=== PATIENT | female | born 1970 | race Caucasian/White ===

== ENCOUNTER 2017-10-16 20:10 | Emergency (ER) | payer BC ==
[2017-10-16 20:23] VITALS: BP 110/70; PULSE 70; RESP 14
--- NOTE | 2017-10-16 20:38 | C.PDOC ---
History Of Present Illness 47 year old female presents to the ED with complaints of pain in her left great toe and left knee beginning 5 hours prior to arrival. Patient states she tripped while on step ladder and fell injuring left big toe and left knee. Patient is able to walk but with pain. Denies weakness, numbness, and no other injury. Time Seen by Provider: 10/16/17 20:26 Chief Complaint (Nursing): Lower Extremity Problem/Injury History Per: Patient History/Exam Limitations: no limitations Onset/Duration Of Symptoms: Hrs (x 5 ) Current Symptoms Are (Timing): Still Present Recent travel outside of the [place]: No - Knee Description Of Injury: Fell - Ankle/Foot Description Of Injury: Fell Past Medical History Reviewed: Historical Data, Nursing Documentation, Vital Signs Vital Signs: Last Vital Signs Temp 98 F 10/16/17 22:19 Pulse 70 10/16/17 22:19 Resp 14 10/16/17 22:19 BP 110/70 10/16/17 22:19 Pulse Ox 100 10/16/17 22:19 Family History: States: Unknown Family Hx - Social History Hx Alcohol Use: No Hx Substance Use: No - Immunization History Hx Tetanus Toxoid Vaccination: Yes Hx Influenza Vaccination: Yes Hx Pneumococcal Vaccination: Yes Review Of Systems Except As Marked, All Systems Reviewed And Found Negative. Constitutional: Negative for: Weakness Musculoskeletal: Positive for: Leg Pain (left knee), Foot Pain (left great toe ) Neurological: Negative for: Weakness, Numbness Physical Exam - Physical Exam Appears: Non-toxic, No Acute Distress Skin: Normal Color, Warm, Dry Head: Atraumatic, Normacephalic Eye(s): bilateral: Normal Inspection Oral Mucosa: Moist Extremity: Normal ROM, Tenderness (left great toe), Swelling (left great toe), Other (ecchymosis base of left great toe) Pulses: Left Dorsalis Pedis: Normal, Right Dorsalis Pedis: Normal Neurological/Psych: Oriented x3, Normal Speech, Normal Motor, Normal Sensation Gait: Steady ED Course And Treatment O2 Sat by Pulse Oximetry: 99 (RA) Pulse Ox Interpretation: Normal Medical Decision Making Medical Decision Making: Knee X-Ray (3 Views), tylenol, RAD Foot Left Great Toe Routine Knee xray is negative. Foot xray (+) avulsion fx of the base of the great toe. Disposition - Disposition Referrals: Raina Tello DPM [Staff Provider] - Disposition: HOME/ ROUTINE Disposition Time: 21:33 Condition: GOOD Additional Instructions: follow up with the Lens Generating Machine Tender within 1-2 days. Return if worsened. Instructions: Toe Fracture, Knee Sprain (DC) Forms: [employer] (Lao) - Clinical Impression Clinical Impression: Toe fracture - Scribe Statement The provider has reviewed the documentation as recorded by the Scribe Garrick Cifuentes All medical record entries made by the Salenaiblandon were at my direction and personally dictated by me. I have reviewed the chart and agree that the record accurately reflects my personal performance of the history, physical exam, medical decision making, and the department course for this patient. I have also personally directed, reviewed, and agree with the discharge instructions and disposition.
[2017-10-16 22:21] VITALS: TEMP 98
[2017-10-16 22:50] VITALS: O2SAT 99
--- NOTE | 2017-10-17 13:20 | RAD ---
PROCEDURE: Radiographs of the left great toe. TECHNIQUE:: AP radiograph of the left foot, with oblique and lateral view of the left great toe. COMPARISON: None. FINDINGS: BONES: Displaced intra-articular fracture of the lateral base of the 1st proximal phalanx. JOINTS: Normal. SOFT TISSUES: Regional soft tissue swelling. OTHER FINDINGS: None. IMPRESSION: Displaced intra-articular fracture of the lateral base of the 1st proximal phalanx.
--- NOTE | 2017-10-17 13:20 | RAD ---
PROCEDURE: Left Knee Radiographs. HISTORY: Pain. COMPARISON: None. FINDINGS: BONES: No acute fracture. JOINTS: Unremarkable. JOINT EFFUSION: None. OTHER FINDINGS: None. IMPRESSION: No demonstrated fracture or dislocation.
== END 2017-10-16 22:21 | disposition home or self-care (01) ==
LOC: C.ER 20:10
DX: S92.412A Displaced fracture of proximal phalanx of left great toe, initial encounter for closed fracture (principal); W01.0XXA Fall on same level from slipping, tripping and stumbling without subsequent striking against object, initial encounter

== ENCOUNTER 2017-10-19 10:46 | Day surgery (SDC) | payer BC, OTHER ==
[2017-10-18 09:57] VITALS: BMI 25.8
[2017-10-19] MEDS ORDERED: Bupivacaine 0.25% Inj(30mL) ONE (11:48)
[2017-10-19] MEDS ORDERED: Lidocaine Hydrochloride 5 ML INJ ONE (12:19)
[2017-10-19] MEDS ORDERED: Propofol 10 mg/ml Inj (20 ML) ONE ×2 (12:25→12:59)
[2017-10-19] MEDS ORDERED: Midazolam 2 MG/2 ML VIAL ONE (12:25)
[2017-10-19] MEDS ORDERED: Lidocaine Hydrochloride 10 ML INJ ONE (12:47)
[2017-10-19] MEDS ORDERED: ceFAZolin 1 gm in NS 1 GM/100 ML BAG IVPB ONE (13:24)
[2017-10-19] MEDS ORDERED: Oxycodone/Acetaminophen 5/325 mg Tab PO PRN ×2 (13:59)
--- NOTE | 2017-10-19 13:59 | PCM.SURG1 ---
Surgeon's Initial Post Op Note - Surgeon's Notes Surgeon: Dr. Tello Commercial Roofing Estimator: Dr. Reyes PGY-2 Type of Anesthesia: IV Sedation, Local Anesthesia Administered By: Aliya Pre-Operative Diagnosis: left foot displaced fracture of proximal phalanx of great toe Operative Findings: see dictation Post-Operative Diagnosis: same as preop Operation Performed: left foot open reduction with internal fixation of displaced proximal phalanx fracture of great toe Specimen/Specimens Removed: none Estimated Blood Loss: EBL {In ML}: 2 Blood Products Given: N/A Drains Used: No Drains Post-Op Condition: Good Date of Surgery/Procedure: 10/19/17 Time of Surgery/Procedure: 13:00
[2017-10-19] MEDS ORDERED: HYDROmorphone 0.5 mg/0.5 ml ISec IVP PRN (14:09)
[2017-10-19] MEDS ORDERED: Lactated Ringer's 1,000 ML IV SCH (14:15)
[2017-10-19] MEDS ORDERED: Lactated Ringer's 500 ML IV ONE ×2 (14:45)
--- NOTE | 2017-10-20 04:08 | OP ---
PROCEDURE DATE: 10/19/2017 PREOPERATIVE DIAGNOSIS: Left foot displaced fracture of the proximal phalanx of hallux. POSTOPERATIVE DIAGNOSIS: Left foot displaced fracture of the proximal phalanx of hallux. PROCEDURE: Left foot open reduction with internal fixation of the proximal phalanx of the hallux. SURGEON: Raina Tello DPM ELEMENTARY SPECIAL EDUCATION TEACHER: Ariela Reyes DPM, PGY-2 ANESTHESIOLOGIST: Ryan Storm MD. ANESTHESIA: IV sedation with local. INDICATIONS: The patient is a 47-year-old female with the above-mentioned diagnosis. The patient has exhausted multiple forms of conservative treatment at the time and now requires surgical intervention. The patient signed the consent after careful explanation of risks, benefits, complications, and alternatives for surgical procedure. No guarantees were given nor implied. DESCRIPTION OF PROCEDURE: The patient was brought into the operating room and placed on the operating room table in the supine position. A time-out was performed for the identification of the correct patient and procedure. The patient received a total of 20 mL of 1:1 mixture of 1% lidocaine plain and 0.25% Marcaine plain in a local block-type fashion to the left foot. Once local anesthesia was achieved, the left foot was then prepped and draped in a normal sterile manner. The patient's left foot was then elevated and the pneumatic ankle tourniquet was inflated to 250 mmHg and the procedure began. Attention was directed to the dorsal aspect of the first metatarsal head of the left foot where an approximately 4 cm linear longitudinal incision was made lateral and parallel to the tendon of the extensor hallucis longus extending from the first metatarsal head to the head of the proximal phalanx. Incision was deepened through subcutaneous tissue using sharp and blunt dissection. Care was taken to identify and retract all vital neurovascular structures. All bleeders were cauterized and ligated as necessary. A periosteal incision was made and all ligamentous and capsular structures were released on the lateral aspect of the first metatarsophalangeal joint. The fractured fragment that was displaced was then visualized at the lateral base of the proximal phalanx of the hallux. Using reduction clamps and forceps, and under C-arm guidance, the fracture was reduced and temporarily held in a position with the clamp. Using standard AO principles and technique, a 2.0 x 20 mm Synthes screw was placed across the fracture site with excellent compression noted. The articular cartilage was assessed and restored in good alignment. The incision site was then copiously irrigated with sterile normal saline. The capsular structures were then re-approximated with 2-0 and 3-0 Vicryl. The subcutaneous tissue was re-approximated with 4-0 Vicryl and the subcuticular tissue was reapproximated with 4-0 Monocryl. Postoperative injection of 10 mL of 1% lidocaine plain was given in a local block-type fashion to the left foot. A postoperative bandage including Steri-Strips, 4 x 4 gauze that were wet to dry, Catarina, and Tensoplast was applied to the left foot. POSTOPERATIVE CONDITION: The patient tolerated the anesthesia and the procedure well and was escorted to the recovery room with vital signs stable and neurovascular status intact to the left foot. The patient will remain partial weightbearing in a surgical shoe with crutches and will follow up with Dr. Tello in her office. Ariela Reyes DPM Raina Tello DPM
[2017-10-20 11:09] VITALS: BP 94/64; PULSE 68; RESP 16; TEMP 97.9; O2SAT 98
== END 2017-10-19 17:55 | disposition home or self-care (01) ==
LOC: C.SDS 10:46
PROVIDERS: ATTEND Podiatrist Foot & Ankle Surgery
DX: S92.412A Displaced fracture of proximal phalanx of left great toe, initial encounter for closed fracture (principal); X58.XXXA Exposure to other specified factors, initial encounter